=== PATIENT | male | born 1950 | race Hispanic/Latino ===

== ENCOUNTER 2018-02-21 10:48 | Inpatient (IN) | payer MEDICARE ==
[2018-02-21] VITALS (16 sets, daily range): BP systolic 89–112; BP diastolic 37–78
[~2018-02-21] VITALS: Ht 170.2 cm; Wt 69.5 kg
[2018-02-21 11:00] LABS: BASOPHILS % (AUTO) 0.5 % (0.0-5.0); EOSINOPHILS % (AUTO) 2.1 % (0.0-8.0); HEMATOCRIT 46.6 % (42-54); LYMPHOCYTES % (AUTO) 19.9 % (21.0-51.0); MEAN CORPUSCULAR HGB CONC 32.3 g/dL (32.0-36.0); MEAN CORPUSCULAR VOLUME 99.2 fL (79-99); MONOCYTES % (AUTO) 6.1 % (3.0-13.0); NEUTROPHILS % (AUTO) 71.4 % (40.0-77.0); PLATELET COUNT (AUTO) 89 K/uL (130-400); RED CELL DISTRIBUTION WIDTH 14.5 % (11.0-15.5); WHITE BLOOD COUNT (AUTO) 15.8 K/uL (4.8-10.8)
[2018-02-21] MEDS ORDERED: NITROGLYCERIN 1GM/1 INCH PACKET TD ONE (11:20)
[2018-02-21 11:29] LABS: CREATININE 1.1 mg/dL (0.5-1.5); POTASSIUM 4.3 mmol/L (3.5-5.1)
[2018-02-21 11:36] LABS: ALBUMIN 2.9 g/dL (3.5-5.0); BILIRUBIN,TOTAL 0.5 mg/dL (0.2-1.0); TOTAL PROTEIN, SERUM 7.2 g/dL (6.0-8.3)
[2018-02-21 11:45] LABS: INR 1.06 (0.85-1.15); PARTIAL THROMBOPLASTIN TIME 40.3 SEC (26.3-35.5); PROTHROMBIN TIME 11.1 SEC (9.6-11.6)
[2018-02-21] MEDS ORDERED: LORAZEPAM 2 MG/ML 1 ML VIAL IM PRN (11:45)
[2018-02-21] MEDS ORDERED: MORPHINE SULFATE 2 MG/ML 1ML SYG IV PRN (11:45)
[2018-02-21] MEDS ORDERED: ONDANSETRON HCL 4 MG/2 ML VIAL IV PRN (11:45)
[2018-02-21] MEDS ORDERED: ONDANSETRON HCL 4 MG/2 ML VIAL ONE (11:57)
[2018-02-21] MEDS ORDERED: SODIUM CHLORIDE 0.9% 100 ML IV ONE (12:04)
[2018-02-21] MEDS ORDERED: OCTREOTIDE ACETATE 100 MCG/ML AMP IVP SCH (12:15)
[2018-02-21] MEDS ORDERED: OCTREOTIDE ACETATE 1,000 MCG in SODIUM CHLORIDE 0.9% 95 ML IV SCH (12:15)
[2018-02-21] MEDS ORDERED: METOCLOPRAMIDE 10 MG/2 ML VIAL ONE (12:55)
[2018-02-21 13:29] LABS: HEMATOCRIT 44.2 % (42-54)
[2018-02-21] MEDS ORDERED: PROPOFOL 10 MG/ML 20ML VIAL IV ONE ×2 (13:30)
[2018-02-21] MEDS ORDERED: SUCCINYLCHOLINE CHLORIDE 20 MG/ML 10 ML VIAL ONE (13:32)
[2018-02-21] MEDS ORDERED: SODIUM CHLORIDE 0.9% 10 ML VIAL ONE (13:36)
[2018-02-21] MEDS ORDERED: GLUCAGON 1MG KIT 1 MG ML IM PRN (15:45)
[2018-02-21] MEDS ORDERED: DIAZEPAM 5 MG TABLET PO PRN (15:45)
[2018-02-21] MEDS ORDERED: DEXTROSE 50%-WATER 50 ML DISP.SYRIN IV PRN (15:45)
[2018-02-21] MEDS ORDERED: SODIUM CHLORIDE 0.9% 1000ML 1,000 ML IV SCH (15:45)
[2018-02-21 18:18] LABS: HEMATOCRIT 37.1 % (42-54)
[2018-02-21] MEDS: NOREPINEPHRINE 4MG/NS 250ML 250 ML IV PRN (18:24)
[2018-02-21] MEDS: CEFTRIAXONE SODIUM 1 GM IVP SCH (18:24)
[2018-02-21] MEDS: INSULIN HUMULIN R 100 UNIT/ML 3ML SQ SCH (18:25)
[2018-02-21 20:04] LABS: TROPONIN I 769.77 ng/mL (0.00-0.06)
[2018-02-21] MEDS ORDERED: MAG HYDROX/AL HYDROX/SIMETH ES 30 ML SUSP UDCUP PO PRN (20:30)
[2018-02-21] MEDS: PANTOPRAZOLE SODIUM 80 MG in SODIUM CHLORIDE 0.9% 100 ML IV SCH (20:39)
[2018-02-21] MEDS ORDERED: FUROSEMIDE 10 MG/ML 2ML VIAL IV SCH (21:00)
[2018-02-21] MEDS: NITROGLYCERIN 1GM/1 INCH PACKET TD SCH (21:23)
[2018-02-22] VITALS (33 sets, daily range): BP systolic 93–131; BP diastolic 51–89
[2018-02-22] MEDS: INSULIN HUMULIN R 100 UNIT/ML 3ML SQ SCH ×5 (00:09→21:00)
[2018-02-22 00:21] LABS: HEMATOCRIT 42.5 % (42-54)
[2018-02-22] MEDS: NOREPINEPHRINE 4MG/NS 250ML 250 ML IV PRN (02:02)
[2018-02-22] MEDS: NITROGLYCERIN 1GM/1 INCH PACKET TD SCH ×4 (03:18→20:59)
[2018-02-22] MEDS: PANTOPRAZOLE SODIUM 80 MG in SODIUM CHLORIDE 0.9% 100 ML IV SCH ×3 (04:13→16:45)
[2018-02-22 04:49] LABS: ABG BASE EXCESS -5.4 mmol/L (-2.0-3.0); ABG HCO3 20.2 mmol/L (21.0-28.0); ABG OXYGEN SATURATION 89.9 % (95.0-99.0); ABG PCO2 40 mmHg (35-48)
[2018-02-22 06:13] LABS: BASOPHILS % (AUTO) 0.8 % (0.0-5.0); EOSINOPHILS % (AUTO) 0.1 % (0.0-8.0); HEMATOCRIT 40.1 % (42-54); LYMPHOCYTES % (AUTO) 14.5 % (21.0-51.0); MEAN CORPUSCULAR HEMOGLOBIN 33.4 pg (27.0-33.0); MEAN CORPUSCULAR HGB CONC 33.4 g/dL (32.0-36.0); MEAN CORPUSCULAR VOLUME 99.8 fL (79-99); MONOCYTES % (AUTO) 10.4 % (3.0-13.0); NEUTROPHILS % (AUTO) 74.2 % (40.0-77.0); PLATELET COUNT (AUTO) 79 K/uL (130-400); RED BLOOD CELL COUNT(AUTO) 4.02 MIL/uL (4.50-6.20); RED CELL DISTRIBUTION WIDTH 14.3 % (11.0-15.5); WHITE BLOOD COUNT (AUTO) 16.7 K/uL (4.8-10.8)
[2018-02-22 06:19] LABS: INR 1.03 (0.85-1.15); PARTIAL THROMBOPLASTIN TIME 27.5 SEC (26.3-35.5); PROTHROMBIN TIME 10.8 SEC (9.6-11.6)
[2018-02-22 06:34] LABS: ALBUMIN 2.7 g/dL (3.5-5.0); BILIRUBIN,TOTAL 0.4 mg/dL (0.2-1.0); CREATININE 2.3 mg/dL (0.5-1.5); MAGNESIUM 1.9 mg/dL (1.80-2.40); PHOSPHORUS 4.1 mg/dL (2.5-4.9); POTASSIUM 4.8 mmol/L (3.5-5.1); TOTAL PROTEIN, SERUM 6.7 g/dL (6.0-8.3)
[2018-02-22] MEDS ORDERED: FUROSEMIDE 10 MG/ML 4ML VIAL IV SCH (08:15)
[2018-02-22] MEDS: THIAMINE HCL 100 MG TABLET PO SCH (08:46)
[2018-02-22] MEDS: PRENATAL VITAMIN RX TABLET PO SCH (08:46)
[2018-02-22] MEDS ORDERED: PANTOPRAZOLE SODIUM 40 MG TABLET.DR PO SCH (09:00)
[2018-02-22] MEDS ORDERED: M.V.I. IV [ADULT] 10 ML, FOLIC ACID 1 MG, THIAMINE HCL 100 MG in SODIUM CHLORIDE 0.9% 1... IV SCH (09:00)
[2018-02-22] MEDS: DOBUTAMINE 250MG/D5 250ML 250 ML IV SCH (09:16)
[2018-02-22] MEDS: LORAZEPAM 2 MG/ML 1 ML VIAL IVP PRN (10:09)
[2018-02-22] MEDS: CEFTRIAXONE SODIUM 1 GM IVP SCH (15:50)
[2018-02-22 18:21] LABS: HEMATOCRIT 36.2 % (42-54)
[2018-02-23] VITALS (45 sets, daily range): BP systolic 78–145; BP diastolic 47–99
[2018-02-23 00:54] LABS: HEMATOCRIT 35.8 % (42-54)
[2018-02-23] MEDS: NITROGLYCERIN 1GM/1 INCH PACKET TD SCH ×3 (02:49→15:00)
[2018-02-23] MEDS: PANTOPRAZOLE SODIUM 80 MG in SODIUM CHLORIDE 0.9% 100 ML IV SCH ×2 (03:24→17:48)
[2018-02-23 04:01] LABS: ABG BASE EXCESS -4.7 mmol/L (-2.0-3.0); ABG HCO3 20.4 mmol/L (21.0-28.0); ABG OXYGEN SATURATION 90.6 % (95.0-99.0); ABG PCO2 38 mmHg (35-48)
[2018-02-23 04:12] LABS: BASOPHILS % (AUTO) 0.4 % (0.0-5.0); EOSINOPHILS % (AUTO) 0.2 % (0.0-8.0); HEMATOCRIT 34.6 % (42-54); LYMPHOCYTES % (AUTO) 11.8 % (21.0-51.0); MEAN CORPUSCULAR HEMOGLOBIN 32.4 pg (27.0-33.0); MEAN CORPUSCULAR HGB CONC 32.9 g/dL (32.0-36.0); MEAN CORPUSCULAR VOLUME 98.4 fL (79-99); MONOCYTES % (AUTO) 8.5 % (3.0-13.0); NEUTROPHILS % (AUTO) 79.1 % (40.0-77.0); PLATELET COUNT (AUTO) 42 K/uL (130-400); RED BLOOD CELL COUNT(AUTO) 3.51 MIL/uL (4.50-6.20); RED CELL DISTRIBUTION WIDTH 14.8 % (11.0-15.5); WHITE BLOOD COUNT (AUTO) 14.7 K/uL (4.8-10.8)
[2018-02-23 04:34] LABS: B-TYPE NATRIURETIC PEPTIDE 693 pg/mL (0-100)
[2018-02-23 04:46] LABS: ALBUMIN 2.3 g/dL (3.5-5.0); BILIRUBIN,TOTAL 0.5 mg/dL (0.2-1.0); CREATININE 2.8 mg/dL (0.5-1.5); POTASSIUM 4.6 mmol/L (3.5-5.1); TOTAL PROTEIN, SERUM 5.8 g/dL (6.0-8.3)
[2018-02-23 05:34] LABS: TROPONIN I 122.27 ng/mL (0.00-0.06)
[2018-02-23] MEDS: INSULIN HUMULIN R 100 UNIT/ML 3ML SQ SCH ×4 (06:00→23:58)
[2018-02-23] MEDS ORDERED: FUROSEMIDE 10 MG/ML 4ML VIAL IV SCH (09:00)
[2018-02-23] MEDS: THIAMINE HCL 100 MG TABLET PO SCH (09:46)
[2018-02-23] MEDS: PRENATAL VITAMIN RX TABLET PO SCH (09:46)
[2018-02-23] MEDS: DOBUTAMINE 250MG/D5 250ML 250 ML IV SCH (09:47)
[2018-02-23 10:15] LABS: HEMATOCRIT 35.2 % (42-54)
[2018-02-23] MEDS ORDERED: SODIUM CHLORIDE 0.9% 250 ML IV ONE (11:04)
[2018-02-23] MEDS: CHLORDIAZEPOXIDE HCL 25 MG CAP PO SCH ×2 (11:08→21:22)
[2018-02-23] MEDS: FOLIC ACID 1 MG TABLET PO SCH (11:08)
[2018-02-23] MEDS: LORAZEPAM 2 MG/ML 1 ML VIAL IVP PRN (13:20)
[2018-02-23 14:34] LABS: ABG BASE EXCESS -4.8 mmol/L (-2.0-3.0); ABG OXYGEN SATURATION 92.4 % (95.0-99.0); ABG PCO2 37 mmHg (35-48)
[2018-02-23] MEDS ORDERED: FENTANYL 2500MCG+NS 250ML 250 ML IV ONE (16:07)
[2018-02-23] MEDS: MIDAZOLAM 100MG-0.9% NS 100ML 100 ML IV PRN (16:15)
[2018-02-23 17:28] LABS: ABG BASE EXCESS -5.3 mmol/L (-2.0-3.0); ABG HCO3 19.9 mmol/L (21.0-28.0); ABG OXYGEN SATURATION 95.1 % (95.0-99.0); ABG PCO2 38 mmHg (35-48)
[2018-02-23] MEDS: CEFTRIAXONE SODIUM 1 GM IVP SCH (17:29)
[2018-02-23] MEDS: FUROSEMIDE 10 MG/ML 4ML VIAL IV SCH (17:29)
[2018-02-23] MEDS ORDERED: PHARMACY COMMUNICATION MISC SCH (19:00)
[2018-02-23] MEDS: ARTIFICAL TEARS SOL 15 ML OU SCH ×2 (19:02→23:54)
[2018-02-23] MEDS ORDERED: NOREPINEPHRINE BITARTRATE 8 MG in SODIUM CHLORIDE 0.9% 250 ML IV SCH (19:15)
[2018-02-24] VITALS (34 sets, daily range): BP systolic 91–123; BP diastolic 55–74
[2018-02-24] MEDS: FUROSEMIDE 10 MG/ML 4ML VIAL IV SCH ×3 (01:00→17:00)
[2018-02-24] MEDS: PANTOPRAZOLE SODIUM 80 MG in SODIUM CHLORIDE 0.9% 100 ML IV SCH ×2 (01:16→17:06)
[2018-02-24] MEDS: DOBUTAMINE 250MG/D5 250ML 250 ML IV SCH (01:18)
[2018-02-24] MEDS: MIDAZOLAM 100MG-0.9% NS 100ML 100 ML IV PRN (03:33)
[2018-02-24] MEDS: FENTANYL 2500MCG+NS 250ML 250 ML IV PRN ×2 (03:33→21:03)
[2018-02-24 04:28] LABS: BASOPHILS % (AUTO) 0.4 % (0.0-5.0); EOSINOPHILS % (AUTO) 1.7 % (0.0-8.0); HEMATOCRIT 31.9 % (42-54); LYMPHOCYTES % (AUTO) 20.3 % (21.0-51.0); MEAN CORPUSCULAR HEMOGLOBIN 34.5 pg (27.0-33.0); MEAN CORPUSCULAR HGB CONC 34.8 g/dL (32.0-36.0); MEAN CORPUSCULAR VOLUME 98.9 fL (79-99); MONOCYTES % (AUTO) 9.2 % (3.0-13.0); NEUTROPHILS % (AUTO) 68.4 % (40.0-77.0); PLATELET COUNT (AUTO) 72 K/uL (130-400); RED BLOOD CELL COUNT(AUTO) 3.23 MIL/uL (4.50-6.20); RED CELL DISTRIBUTION WIDTH 14.2 % (11.0-15.5); WHITE BLOOD COUNT (AUTO) 10.3 K/uL (4.8-10.8)
[2018-02-24 04:39] LABS: ALBUMIN 2.3 g/dL (3.5-5.0); BILIRUBIN,TOTAL 0.8 mg/dL (0.2-1.0); CREATININE 3.1 mg/dL (0.5-1.5); POTASSIUM 3.9 mmol/L (3.5-5.1); TOTAL PROTEIN, SERUM 6.2 g/dL (6.0-8.3)
[2018-02-24 04:44] LABS: ABG BASE EXCESS -1.1 mmol/L (-2.0-3.0); ABG HCO3 22.3 mmol/L (21.0-28.0); ABG PCO2 34 mmHg (35-48)
[2018-02-24 04:46] LABS: HEMOGLOBIN A1C 8.4 % (4.0-6.0)
[2018-02-24] MEDS: INSULIN HUMULIN R 100 UNIT/ML 3ML SQ SCH ×3 (06:00→18:00)
[2018-02-24] MEDS: ARTIFICAL TEARS SOL 15 ML OU SCH ×3 (06:04→18:04)
[2018-02-24] MEDS: FOLIC ACID 1 MG TABLET PO SCH (09:27)
[2018-02-24] MEDS: THIAMINE HCL 100 MG TABLET PO SCH (09:27)
[2018-02-24] MEDS: CHLORDIAZEPOXIDE HCL 25 MG CAP PO SCH ×2 (09:27→21:01)
[2018-02-24] MEDS: CEFTRIAXONE SODIUM 1 GM IVP SCH (17:00)
[2018-02-24] MEDS ORDERED: FUROSEMIDE 10 MG/ML 4ML VIAL IV SCH (17:00)
[2018-02-25] VITALS (20 sets, daily range): BP systolic 87–113; BP diastolic 50–74
[2018-02-25] MEDS: ARTIFICAL TEARS SOL 15 ML OU SCH ×4 (00:25→17:08)
[2018-02-25] MEDS: FUROSEMIDE 10 MG/ML 4ML VIAL IV SCH ×3 (00:26→17:07)
[2018-02-25] MEDS: INSULIN HUMULIN R 100 UNIT/ML 3ML SQ SCH ×2 (00:33→05:44)
[2018-02-25] MEDS: PANTOPRAZOLE SODIUM 80 MG in SODIUM CHLORIDE 0.9% 100 ML IV SCH (02:11)
[2018-02-25] MEDS: DOBUTAMINE 250MG/D5 250ML 250 ML IV SCH (02:32)
[2018-02-25 04:41] LABS: BASOPHILS % (AUTO) 0.4 % (0.0-5.0); EOSINOPHILS % (AUTO) 2.1 % (0.0-8.0); HEMATOCRIT 31.1 % (42-54); MEAN CORPUSCULAR HEMOGLOBIN 33.6 pg (27.0-33.0); MEAN CORPUSCULAR HGB CONC 34.6 g/dL (32.0-36.0); MEAN CORPUSCULAR VOLUME 97.2 fL (79-99); MONOCYTES % (AUTO) 11.7 % (3.0-13.0); NEUTROPHILS % (AUTO) 73.8 % (40.0-77.0); PLATELET COUNT (AUTO) 50 K/uL (130-400); RED CELL DISTRIBUTION WIDTH 14.4 % (11.0-15.5); WHITE BLOOD COUNT (AUTO) 9.1 K/uL (4.8-10.8)
[2018-02-25 04:51] LABS: ALBUMIN 2.1 g/dL (3.5-5.0); BILIRUBIN,TOTAL 0.8 mg/dL (0.2-1.0); POTASSIUM 3.8 mmol/L (3.5-5.1); TOTAL PROTEIN, SERUM 6.2 g/dL (6.0-8.3)
[2018-02-25] MEDS ORDERED: MULTIVITS W-MIN/FERROUS GLUC 237 ML BOTTLE PO SCH (09:00)
[2018-02-25] MEDS: CHLORDIAZEPOXIDE HCL 25 MG CAP PO SCH (09:02)
[2018-02-25] MEDS: THIAMINE HCL 100 MG TABLET PO SCH (09:02)
[2018-02-25] MEDS: FOLIC ACID 1 MG TABLET PO SCH (09:02)
[2018-02-25] MEDS: LORAZEPAM 2 MG/ML 1 ML VIAL IVP PRN (12:57)
[2018-02-25] MEDS: MORPHINE SULFATE 2 MG/ML 1ML SYG IVP PRN (12:57)
[2018-02-26] VITALS: BP 99/74
[2018-02-26] MEDS: FUROSEMIDE 10 MG/ML 4ML VIAL IV SCH ×2 (02:16→09:33)
[2018-02-26] MEDS: ARTIFICAL TEARS SOL 15 ML OU SCH ×4 (02:16→17:55)
[2018-02-26] MEDS: LORAZEPAM 2 MG/ML 1 ML VIAL IVP PRN ×2 (02:20→10:43)
[2018-02-26 07:43] VITALS: BP 94/59
[2018-02-26] MEDS: MORPHINE SULFATE 2 MG/ML 1ML SYG IVP PRN ×2 (13:08→17:51)
== END 2018-02-26 18:00 | disposition hospice, inpatient (51) | DRG 377 ==
LOC: EDH 10:48 → EDHIP 11:10 → 2CH 15:16 → 2AH 02-25 16:46
PROVIDERS: ADMIT Hospitalist; ATTEND Hospitalist
PROC: 3E03317 Introduction of Other Thrombolytic into Peripheral Vein, Percutaneous Approach (ICD-10-PCS; principal; 2018-02-21)
PROC: 0D598ZZ Destruction of Duodenum, Via Natural or Artificial Opening Endoscopic (ICD-10-PCS; 2018-02-21)
PROC: 0D568ZZ Destruction of Stomach, Via Natural or Artificial Opening Endoscopic (ICD-10-PCS; 2018-02-21)
PROC: 5A09357 Assistance with Respiratory Ventilation, Less than 24 Consecutive Hours, Continuous Positive Airway Pressure (ICD-10-PCS; 2018-02-21)
PROC: 5A09357 Assistance with Respiratory Ventilation, Less than 24 Consecutive Hours, Continuous Positive Airway Pressure (ICD-10-PCS; 2018-02-22)
PROC: 30233R1 Transfusion of Nonautologous Platelets into Peripheral Vein, Percutaneous Approach (ICD-10-PCS; 2018-02-23)
PROC: 0BH17EZ Insertion of Endotracheal Airway into Trachea, Via Natural or Artificial Opening (ICD-10-PCS; 2018-02-23)
PROC: 5A1945Z Respiratory Ventilation, 24-96 Consecutive Hours (ICD-10-PCS; 2018-02-23)
PROC: 5A09357 Assistance with Respiratory Ventilation, Less than 24 Consecutive Hours, Continuous Positive Airway Pressure (ICD-10-PCS; 2018-02-23)
DX: K31.811 Angiodysplasia of stomach and duodenum with bleeding (principal); I21.09 ST elevation (STEMI) myocardial infarction involving other coronary artery of anterior wall; I50.41 Acute combined systolic (congestive) and diastolic (congestive) heart failure; R57.0 Cardiogenic shock; J96.00 Acute respiratory failure, unspecified whether with hypoxia or hypercapnia; D68.9 Coagulation defect, unspecified; E87.2 Acidosis; N17.9 Acute kidney failure, unspecified; I24.9 Acute ischemic heart disease, unspecified; Z66 Do not resuscitate; K22.6 Gastro-esophageal laceration-hemorrhage syndrome; K29.01 Acute gastritis with bleeding; F10.20 Alcohol dependence, uncomplicated; D69.6 Thrombocytopenia, unspecified; F17.210 Nicotine dependence, cigarettes, uncomplicated; K74.60 Unspecified cirrhosis of liver; E11.9 Type 2 diabetes mellitus without complications; I11.0 Hypertensive heart disease with heart failure; I45.10 Unspecified right bundle-branch block; J44.9 Chronic obstructive pulmonary disease, unspecified; K27.9 Peptic ulcer, site unspecified, unspecified as acute or chronic, without hemorrhage or perforation; Z90.49 Acquired absence of other specified parts of digestive tract
CPT/HCPCS: 31500; 36415; 36600; 43235; 71045; 80053; 82550; 82803; 82948; 83036; 83605; 83735; 83874; 83880; 84100; 84484; 85014; 85018; 85025; 85610; 85730; 86850; 86900; 86901; 86922; 92610; 93005; 93306; 94002; 94003; 94660; 94770; 99291; A4218; A4357; C1751; C1894; C9113; J0330; J0696; J1250; J1815; J1940; J2060; J2354; J2405; J2704; J2765; J3010; J3411; J3490; J7030; P9034